=== PATIENT | male | born 1980 | race Caucasian/White ===

== ENCOUNTER 2018-04-01 20:46 | Inpatient (IN) | payer SELFPAY ==
[~2018-04-01 20:46] MED LIST: ASPI325T PO; KEPP500T3 PO; NEUR600T PO; VIST25CA PO
[2018-04-01] MEDS ORDERED: SODIUM CHLORIDE 0.9% FLUSH 10 ML FLUSH IVF PRN (21:00)
[2018-04-01] MEDS ORDERED: SODIUM CHLOR 0.9% 1000 ML INJ 1,000 ML IV ONE (21:00)
[2018-04-01 21:02] VITALS: RESP 13; O2SAT 92
[2018-04-01 21:25] VITALS: O2SAT 93
[2018-04-01] MEDS: RESP: ALBUTEROL 2.5 MG/IPRATROPIUM 0.5 MG NEB (SCH) INH (21:26)
--- NOTE | 2018-04-01 21:28 | RADRPT ---
EXAM DATE: 04/01/2018 9:24 PM EDT AGE/SEX: 37 years / Male INDICATIONS: Cephalgia. CLINICAL DATA: This is the patient's initial encounter. Patient reports that signs and symptoms have been present for 1 day and indicates a pain score of 3/10. MEDICAL/SURGICAL HISTORY: Hepatitis C. Seizures None. RADIATION DOSE: 56.35 CTDI (mGy) [place] [facility] [place]. . TECHNIQUE: CT of the head without contrast. Using automated exposure control and adjustment of the mA and/or kV according to patient size, radiation dose was kept as low as reasonably achievable to ob tain optimal diagnostic quality images. 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 Right hemisphere unremarkable ventricular s ize is appropriate. No extra-axial fluid collections appreciated. Posterior Fossa: The cerebellum and brainstem are intact. The 4th ventricle is midline. The cerebe llopontine angle is unremarkable. Extracranial: The visualized portion of the orbits is intact. Skull: The calvaria is intact. No evidence of skull fracture. CONCLUSION: 1. 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 Electronically signed by: Matthew Choi MD 04/01/2018 9:26 PM EDT
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
--- NOTE | 2018-04-01 21:51 | RADRPT ---
EXAM DATE: 04/01/2018 9:46 PM EDT AGE/SEX: 37 years / Male INDICATIONS: Short of breath. CLINICAL DATA: This is the patient's initial encounter. Patient reports that signs and symptoms have been present for 1 day and indicates a pain score of 0/10. MEDICAL/SURGICAL HISTORY: None. None. COMPARISON: [facility] [place], [place]. . FINDINGS: A single AP view of the chest demonstrates the lungs to be symmetrically aerated without evidence of mass, infiltrate or effusion. The cardiomediastinal contours are stable. Osseous structures are int act. No significant changes compared to the prior study. CONCLUSION: No acute intrathoracic disease. Stable examination. Electronically signed by: Fernie Del Rio MD 04/01/2018 9:49 PM EDT
[2018-04-01 21:53] LABS: AUTOMATED NEUTROPHIL # 11.4 TH/MM3 (1.8-7.7); BASOPHIL # 0.1 TH/MM3 (0-0.2); BASOPHIL % 0.8 % (0.0-2.0); EOSINOPHIL # 0.1 TH/MM3 (0-0.4); EOSINOPHIL % 0.4 % (0.0-4.0); HEMATOCRIT 41.2 % (39.0-51.0); HEMOGLOBIN 13.6 GM/DL (13.0-17.0); LYMPH % 16.2 % (9.0-44.0); LYMPHOCYTE # 2.4 TH/MM3 (1.0-4.8); MEAN CELL VOLUME 84.9 FL (80.0-100.0); MEAN CORPUSCULAR HEMOGLOBIN 27.9 PG (27.0-34.0); MEAN CORPUSCULAR HGB CONC 32.9 % (32.0-36.0); MONO % 6.3 % (0.0-8.0); MONOCYTE # 0.9 TH/MM3 (0-0.9); NEUT % 76.3 % (16.0-70.0); PLATELET COUNT 263 TH/MM3 (150-450); RED BLOOD COUNT 4.86 MIL/MM3 (4.50-5.90); RED CELL DISTRIBUTION WIDTH 15.5 % (11.6-17.2); WHITE BLOOD COUNT 14.9 TH/MM3 (4.0-11.0)
[2018-04-01 22:01] LABS: ALT (GPT) 150 U/L (12-78)
[2018-04-01 22:03] LABS: ALBUMIN 3.7 GM/DL (3.4-5.0); ALKALINE PHOSPHATASE 66 U/L (45-117); AST (GOT) 114 U/L (15-37); BICARBONATE 28.1 MEQ/L (21.0-32.0); BLOOD UREA NITROGEN 20 MG/DL (7-18); CALCIUM 8.6 MG/DL (8.5-10.1); CHLORIDE 105 MEQ/L (98-107); CREATININE 1.15 MG/DL (0.60-1.30); GLOMERULAR FILTRATION RATE 72 ML/MIN (>89); GLUCOSE,RANDOM 125 MG/DL (74-106); SODIUM (NA) 141 MEQ/L (136-145); TOTAL BILIRUBIN ADULT 0.8 MG/DL (0.2-1.0); TOTAL PROTEIN 7.8 GM/DL (6.4-8.2)
[2018-04-01] MEDS ORDERED: IOHEXOL 350 MG/ML 10 ML VIAL (for RAD DIAG) IVCONTRAST ONE (22:53)
--- NOTE | 2018-04-01 23:00 | RADRPT ---
EXAM DATE: 04/01/2018 10:54 PM EDT AGE/SEX: 37 years / Male INDICATIONS: Shortness of breath, found unresponsive. CLINICAL DATA: This is the patient's initial encounter. Patient reports that signs and symptoms have been present for 1 day and indicates a pain score of 0/10. MEDICAL/SURGICAL HISTORY: Hypertension. Hepatitis C. Seizures. None. RADIATION DOSE: 10.22 CTDI (mGy) COMPARISON: No prior [place] exams available for comparison. TECHNIQUE: Volumetric scanning was performed using a multi-row detector CT scanner during bolus infu leroy of 69 ml Omnipaque 350 (iohexol) nonionic water-soluble contrast as a single exam dose. The yamileth a was post processed with a variety of visualization algorithms including full volume maximum intensi ty projection and sliding thin slab reformation. Using automated exposure control and adjustment of the mA and/or kV according to patient size, radiation dose was kept as low as reasonably achievable t o obtain optimal diagnostic quality images. FINDINGS: Pulmonary Arteries: No filling defects are seen in the pulmonary arteries out to the subsegmental ve ssels. The left and right pulmonary arteries are normal in diameter. Lung: There are scattered interstitial infiltrates throughout both lungs, left greater than right. T his would suggest an inflammatory process. There is some focal areas of parenchymal consolidation in the posterior midlungs bilaterally. Effusion: None. Mediastinum: No evidence of mediastinal or hilar adenopathy. Other: The axilla is unremarkable. There appears to be some nonspecific dilatation of the thoracic e sophagus. The stomach also appears to be distended. CONCLUSION: 1. No evidence of pulmonary embolism. 2. Scattered bilateral interstitial infiltrates throughout both lungs, left greater than right sugge stive of an inflammatory process such as pneumonia. 3. Nonspecific dilatation of the thoracic esophagus and stomach. Electronically signed by: Fernie Del Rio MD 04/01/2018 10:59 PM EDT
[2018-04-01] MEDS ORDERED: AZITHROMYCIN INJ 500 MG in SODIUM CHLOR 0.9% 250 ML INJ 250 ML IV ONE (23:30)
[2018-04-01] MEDS ORDERED: cefTRIAXone INJ 1,000 MG in SODIUM CHLORIDE 0.9% INJ 100 ML IV ONE (23:30)
[2018-04-02] VITALS (10 sets, daily range): BP systolic 102–136; BP diastolic 59–74; PULSE 65–94; RESP 14–18; TEMP 98.3–99.6; O2SAT 89–97
[2018-04-02] MEDS ORDERED: SODIUM CHLORIDE 0.9% FLUSH 10 ML FLUSH IV FLUSH PRN (01:15)
[2018-04-02] MEDS ORDERED: MAGNESIUM HYDROXIDE SUSP 30 ML CUP PO PRN (01:15)
[2018-04-02] MEDS ORDERED: BISACODYL 10 MG SUPP RECTAL PRN (01:15)
[2018-04-02] MEDS ORDERED: NALOXONE HCL 0.4 MG/ML AMP IV PUSH PRN (01:15)
[2018-04-02] MEDS ORDERED: ONDANSETRON ODT 4 MG TAB PO PRN (01:15)
[2018-04-02] MEDS ORDERED: SENNOSIDES 8.6 MG TAB PO PRN (01:15)
[2018-04-02] MEDS ORDERED: RESP: ALBUTEROL 2.5 MG/IPRATROPIUM 0.5 MG NEB (PRN) NEB (01:15)
[2018-04-02] MEDS ORDERED: LACTULOSE SYRUP 20 GM/30 ML CUP PO PRN (01:15)
[2018-04-02] MEDS ORDERED: GABA600T PO (01:20)
[2018-04-02] MEDS ORDERED: LEVE500 (01:20)
[2018-04-02] MEDS ORDERED: HYDR-4107 PO (01:20)
[2018-04-02] MEDS ORDERED: LITH300C2 PO (01:20)
[2018-04-02] MEDS ORDERED: VIST50CA PO ×2 (01:20)
[2018-04-02] MEDS ORDERED: LORazepam 2 MG/ML VIAL IV PUSH PRN (02:45)
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
[2018-04-02] MEDS: DOCUSATE SODIUM 50 MG/SENNA 8.6 MG TAB PO SCH ×2 (08:09→21:00)
[2018-04-02] MEDS: levETIRAcetam 500 MG TAB PO SCH ×2 (08:10→21:01)
[2018-04-02] MEDS: ACETAMINOPHEN 325 MG TAB PO PRN ×3 (08:10→22:45)
[2018-04-02] MEDS: SODIUM CHLORIDE 0.9% FLUSH 10 ML FLUSH IV FLUSH SCH ×2 (09:05→21:00)
[2018-04-02] MEDS: LITHIUM CARBONATE 300 MG CAP PO SCH ×3 (09:19→17:39)
--- NOTE | 2018-04-02 14:07 | EKG ---
Date Performed: 04/01/2018 Time Performed: 20:53:10 PTAGE: 37 years EKG: Sinus rhythm NORMAL ECG INTERPRETATION BASED ON A DEFAULT AGE OF 41 YEARS PREVIOUS TRACING : 06/14/2015 16.04 DOCTOR: Rolan Hunt Interpretating Date/Time 04/02/2018 14:05:09
--- NOTE | 2018-04-02 18:14 | HHI.PR ---
Addendum to Inpatient Note Addendum Reason: Additional Documentation Additional Information Patient denies having had any more seizures. Patient denies chest pain or shortness of breath. Denies fevers or chills. Patient is awake alert oriented 3, cranial nerves II through XII grossly intact with 5/5 motor strength. Lungs are clear to auscultation bilaterally. Patient can with seizure. Patient states he has been compliant with medications. I will order a neurology consultation and check an EEG. Continue IV antibiotics. Add oral Flagyl to cover for bacteria for suspected aspiration pneumonia as seen on CTA reviewed by me. Kavon Souza MD April 02, 2018 18:14
[2018-04-03] VITALS (8 sets, daily range): BP systolic 103–133; BP diastolic 64–86; PULSE 57–81; RESP 16–18; TEMP 97.9–98.8; O2SAT 94–98
[2018-04-03] MEDS ORDERED: cefTRIAXone INJ 1,000 MG in SODIUM CHLORIDE 0.9% INJ 100 ML IV SCH ×2
[2018-04-03] MEDS ORDERED: AZITHROMYCIN INJ 500 MG in SODIUM CHLOR 0.9% 250 ML INJ 250 ML IV SCH (01:00)
[2018-04-03 05:18] LABS: BASOPHIL % 0.2 % (0.0-2.0); EOSINOPHIL # 0.3 TH/MM3 (0-0.4); EOSINOPHIL % 2.4 % (0.0-4.0); HEMATOCRIT 39.2 % (39.0-51.0); LYMPH % 17.3 % (9.0-44.0); LYMPHOCYTE # 2.1 TH/MM3 (1.0-4.8); MEAN CELL VOLUME 84.1 FL (80.0-100.0); MEAN CORPUSCULAR HGB CONC 33.3 % (32.0-36.0); MEAN PLATELET VOLUME 8.9 FL (7.0-11.0); MONO % 4.2 % (0.0-8.0); MONOCYTE # 0.5 TH/MM3 (0-0.9); NEUT % 75.9 % (16.0-70.0); PLATELET COUNT 221 TH/MM3 (150-450); RED BLOOD COUNT 4.66 MIL/MM3 (4.50-5.90); RED CELL DISTRIBUTION WIDTH 15.5 % (11.6-17.2); WHITE BLOOD COUNT 11.8 TH/MM3 (4.0-11.0)
[2018-04-03 05:35] LABS: BICARBONATE 25.1 MEQ/L (21.0-32.0); CALCIUM 8.6 MG/DL (8.5-10.1); CREATININE 0.74 MG/DL (0.60-1.30)
[2018-04-03] MEDS: LITHIUM CARBONATE 300 MG CAP PO SCH ×2 (08:09→12:30)
[2018-04-03] MEDS: levETIRAcetam 500 MG TAB PO SCH (08:09)
[2018-04-03] MEDS: DOCUSATE SODIUM 50 MG/SENNA 8.6 MG TAB PO SCH (08:09)
[2018-04-03] MEDS: SODIUM CHLORIDE 0.9% FLUSH 10 ML FLUSH IV FLUSH SCH (08:10)
[2018-04-03] MEDS: ACETAMINOPHEN 325 MG TAB PO PRN (12:30)
[2018-04-03] MEDS ORDERED: NICOTINE 14 MG/24 HR PATCH T-DERMAL SCH (14:15)
--- NOTE | 2018-04-03 14:31 | MG ---
cc: Aleida Peck MD DATE OF : 1980 AGE: [age] years old. EEG NUMBER: [id number]. REFERRING PHYSICIAN: Dr. Qiu ROOM: 1414. NOTE: Awake, drowsy, sleep study with photic stimulation. HISTORY: A 37-year-old male found minimally responsive with pinpoint pupils, agonal respirations. He had a history of brain surgery, history of epidural hematoma, schizophrenia. MEDICATIONS: 1. Keppra. 2. [place]. 3. Tylenol. 4. Zithromax. 5. Rocephin. DESCRIPTION OF RECORD: There is an overall background of 5.5-6 Hz, 20-40 microvolts which is seen bilaterally. The EKG looks sinus. There is some sweat sway noted. Photic stimulation with a mild driving response. IMPRESSION: Abnormal electrocardiogram due to some mild slowing of background consistent with what looks like an encephalopathic process, but no gross epileptic activity noted. Clinical correlation advised. Aleida Peck MD DF/ASHIA , 02:14 PM , 02:30 PM
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
[2018-04-03] MEDS ORDERED: LEVE500 PO (17:54)
[2018-04-03] MEDS ORDERED: CLIN150 PO (17:54)
[2018-04-03] MEDS ORDERED: CLINDAMYCIN 150 MG CAP PO SCH (18:00)
[2018-04-04] MEDS ORDERED: REMOVE OLD PATCH T-DERMAL SCH (09:00)
[2018-04-04] MEDS ORDERED: AZITHROMYCIN 250 MG TAB PO SCH (09:00)
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
== END 2018-04-03 18:12 | disposition left against medical advice (07) | DRG 917 ==
LOC: NEPC 20:46 → NEDA 23:51 → UNDOADMIN 23:51 → NEDH 04-02 03:51 → NEPHCDU 04-02 04:05 → NEDA 04-02 04:05 → N04B 04-02 10:16
PROVIDERS: ADMIT Hospitalist; ATTEND Hospitalist
DX: T40.2X1A Poisoning by other opioids, accidental (unintentional), initial encounter (principal); J69.0 Pneumonitis due to inhalation of food and vomit; G40.509 Epileptic seizures related to external causes, not intractable, without status epilepticus; Z87.820 Personal history of traumatic brain injury; F25.9 Schizoaffective disorder, unspecified; B19.20 Unspecified viral hepatitis C without hepatic coma; Z72.0 Tobacco use
CPT/HCPCS: 70450; 71045; 71275; 80048; 80053; 80177; 80178; 80307; 85025; 87040; 87804; 93005; 94640; 94664; 95819; 96360; J0456; J0696; J7030; J7050; Q9967